=== PATIENT | male | born 1980 | race African-American/Black ===

== ENCOUNTER 2018-05-23 10:03 | Emergency (ER) | payer SELFPAY ==
[~2018-05-23] VITALS: Ht 182.9 cm; Wt 70.0 kg
[~2018-05-23 10:03] MED LIST: ACET650S10 PO; CLX20 PO
[2018-05-23 10:30] VITALS: TEMP 36.7; Ht 182.9 cm; Wt 70.0 kg
[2018-05-23] MEDS ORDERED: LORAZEPAM 1 MG TAB SL STA ×2 (10:42→11:33)
[2018-05-23] MEDS ORDERED: hydrOXYzine HCL 25 MG TAB PO STA (11:33)
[2018-05-23 12:46] LABS: HEMATOCRIT 41.4 % (42-52); HEMOGLOBIN 13.5 g/dL (14.0-18.0); MEAN CELL VOLUME 80.1 fL (80-100); MEAN CORPUSCULAR HEMOGLOBIN 26.1 pg (25-34); MEAN CORPUSCULAR HGB CONC 32.6 g/dl (32-36); MEAN PLATELET VOLUME 9.9 fL (7.4-10.4); PLATELET COUNT 194 K/uL (130-400); RED CELL DISTRIBUTION WIDTH CV 15.7 % (11.5-14.5); RED CELL DISTRIBUTION WIDTH SD 45.8 fL (36.4-46.3); WHITE BLOOD COUNT 4.86 K/uL (4.8-10.8)
[2018-05-23 13:14] LABS: ALBUMIN 3.4 gm/dl (3.4-5.0); CREATININE 1.07 mg/dl (0.60-1.40); POTASSIUM 3.4 mmol/L (3.5-5.1); TOTAL PROTEIN 6.8 gm/dl (6.4-8.2)
--- NOTE | 2018-05-23 14:11 | EMERGENCY ROOM VISIT NOTE ---
History Report prepared by Micha: Norma Martínez Under the Supervision of: Dr. Ryan Osborne M.D. First contact with patient: 10:35 Chief Complaint: MENTAL HEALTH EVALUATION Stated Complaint: ANXIETY,DEPRESSION,SUBSTANCE ABUSE PRIOR SUICIDAL History of Present Illness The patient is a 37 year old male who presents to the Emergency Room for a mental health evaluation. He states he "cannot take his anxiety anymore" so he came to the ED for help. He states after he got out of custodial in October 2016, he and his fiancee broke up and he rarely gets to see his son anymore. 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 These factors have caused him to become increasingly paranoid and he states he has been doing drugs to cope however, he feels it has worsened his anxiety. 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 He denies any SI or SOB. The patient has a history of ulcerative colitis and high blood pressure but does not take any medications. Source of History: patient Onset: after getting out of custodial in October 2016 Position: head, other (upper and lower extremities) Quality: other (anxiety) Modifying Factors (Worsening): other (drugs, fiancee breaking up with him, not being able to see his son, losing his job) Associated Symptoms: No SOB Note: Negative SI Review of Systems See HPI for pertinent positives & negatives. A total of 10 systems reviewed and were otherwise negative. Past Medical & Surgical Medical Problems: (1) Anxiety (2) Elevated CK (3) Elevated troponin (4) Iritis (5) Ulcerative colitis Surgical Problems: (1) No pertinent past surgical history Family History Diabetes mellitus FH: CAD (coronary artery disease) FH: cancer Hypertension Kidney disease Social History Smoking Status: Current Every Day Smoker Alcohol Use: occasionally Drug Use: none Marital Status: single Current/Historical Medications No Active Prescriptions or Reported Meds Allergies Coded Allergies: Omeprazole (Verified Allergy, Unknown, 02/26/16) Penicillins (Verified Allergy, Unknown, 02/26/16) Pineapple (Verified Allergy, Unknown, 02/26/16) Cantaloupe (Verified Adverse Reaction, Unknown, GI SYMPTOMS, 02/26/16) Coconut (Verified Adverse Reaction, Unknown, GI SYMPTOMS, 02/26/16) Honeydew Gem (Verified Adverse Reaction, Unknown, GI SYMPTOMS, 02/26/16) Physical Exam Vital Signs Date Time Temp Pulse Resp B/P (MAP) Pulse Ox O2 Delivery O2 Flow Rate FiO2 05/23/18 13:50 100 22 108/67 97 Room Air 05/23/18 11:50 105 22 110/76 97 Room Air 05/23/18 10:30 36.7 90 22 103/62 97 Room Air Physical Exam GENERAL: Patient is tearful and anxious. HEENT: No acute trauma, normocephalic atraumatic, mucous membranes moist, no nasal congestion, no scleral icterus. NECK: No stridor, no adenopathy, no meningismus, trachea is midline. LUNGS: Clear to auscultation bilaterally, no wheeze, no rhonchi, breath sounds equal. HEART: Without murmurs gallops or rubs, regular rate and rhythm. ABDOMEN: Soft, nontender, bowel sounds positive, no hernias, no peritonitis. EXTREMITIES: No cyanosis or edema, full range of motion of all the joints without pain or difficulty, no signs for acute trauma. PSYCH: Cooperative, tearful and anxious. Denies being suicidal. NEUROLOGIC: Oriented x 3, no acute motor or sensory deficits, no focal weakness. SKIN: No rash, no jaundice, no diaphoresis. Medical Decision & Procedures Laboratory Results 05/23/18 12:32 05/23/18 12:32 Test 05/23/18 10:49 05/23/18 12:32 Urine Color DK YELLOW Urine Appearance CLEAR (CLEAR) Urine pH 5.0 (4.5-7.5) Urine Specific [place] 1.029 (1.000-1.030) Urine Protein TRACE (NEG) Urine Glucose (UA) NEG (NEG) Urine Ketones TRACE (NEG) Urine Occult Blood NEG (NEG) Urine Nitrite NEG (NEG) Urine Bilirubin NEG (NEG) Urine Urobilinogen POS (NEG) Urine Leukocyte Esterase NEG (NEG) Urine WBC (Auto) 5-10 /hpf (0-5) Urine RBC (Auto) 0-4 /hpf (0-4) Urine Hyaline Casts (Auto) 1-5 /lpf (0-5) Urine Epithelial Cells (Auto) 10-20 /lpf (0-5) Urine Bacteria (Auto) NEG (NEG) Urine Opiates Screen NEG (NEG) Urine Methadone, Qualitative NEG (NEG) Urine Barbiturates NEG (NEG) Urine Phencyclidine (PCP) Level NEG (NEG) Ur Amphetamine/Methamphetamine POS (NEG) MDMA (Ecstasy) Screen POS (NEG) Urine Benzodiazepines Screen NEG (NEG) Urine Cocaine Metabolite NEG (NEG) Urine Marijuana (THC) POS (NEG) Red Blood Count 5.17 M/uL (4.7-6.1) Mean Corpuscular Volume 80.1 fL (80-100) Mean Corpuscular Hemoglobin 26.1 pg (25-34) Mean Corpuscular Hemoglobin Concent 32.6 g/dl (32-36) RDW Standard Deviation 45.8 fL (36.4-46.3) RDW Coefficient of Variation 15.7 % (11.5-14.5) Mean Platelet Volume 9.9 fL (7.4-10.4) Anion Gap 8.0 mmol/L (3-11) Est Creatinine Clear Calc Drug Dose 95.4 ml/min Estimated GFR () 103.7 Estimated GFR (Non- 89.5 BUN/Creatinine Ratio 8.7 (10-20) Calcium Level 8.0 mg/dl (8.5-10.1) Total Bilirubin 0.5 mg/dl (0.2-1) Aspartate Amino Transf (AST/SGOT) 14 U/L (15-37) Alanine Aminotransferase (ALT/SGPT) 18 U/L (12-78) Alkaline Phosphatase 64 U/L (45-117) Total Protein 6.8 gm/dl (6.4-8.2) Albumin 3.4 gm/dl (3.4-5.0) Globulin 3.4 gm/dl (2.5-4.0) Albumin/Globulin Ratio 1.0 (0.9-2) Thyroid Stimulating Hormone (TSH) 0.535 uIu/ml (0.300-4.500) Salicylates Level 3.4 mg/dl (2.8-20) Acetaminophen Level < 2 ug/ml (10-30) Ethyl Alcohol mg/dL < 3.0 mg/dl (0-3) Laboratory results reviewed by me. Medications Administered Medications (Trade) Dose Ordered Sig/Alba Route Start Time Stop Time Status Last Admin Dose Admin Lorazepam (Ativan Tab) 1 mg NOW STAT SL 05/23/18 10:42 05/23/18 10:44 DC 05/23/18 10:42 1 MG Lorazepam (Ativan Tab) 2 mg NOW STAT SL 05/23/18 11:33 05/23/18 11:34 DC 05/23/18 11:33 2 MG Hydroxyzine HCl (Vistaril Tab) 50 mg NOW STAT PO 05/23/18 11:33 05/23/18 11:34 DC 05/23/18 11:33 25 MG ED Course 1037: The patient was evaluated in room A5. A complete history and physical exam was performed. 1042: Ordered Ativan Tab 1 mg SL 1130: I checked on the patient at this time. He is still feeling anxious and does not want to do labs. 1133: Ordered Vistaril Tab 50 mg PO, Ativan tab 2 mg SL 1726: The patient was signed out to Dr. Villanueva at this time. Medical Decision Differential diagnosis: Etiologies such as drug and alcohol abuse, withdrawal, thyroid disorder, electrolyte imbalance, situational anxiety, SI, as well as others were entertained. There is no leukocytosis or concerning anemia. No significant electrolyte abnormality, kidney failure or hepatitis. Patient appears to be in a euthyroid state. Urinalysis shows some contamination. Urine tox shows marijuana, ecstasy and methamphetamine. Alcohol level was undetectable. The patient was quite anxious and tearful. He was refusing lab work. He was given sublingual Ativan with no effect. He then received another dose of sublingual Ativan with a dose of oral Vistaril. This helped control his anxiety and he is now sleeping. The patient is sleeping and cannot be assessed from a psychiatric standpoint until he is more awake. His care will be signed out to Dr. Villanueva, please see his notes for the final disposition and plan. I do think the patient is medically clear for a psychiatric evaluation. He did present voluntarily, he denied being suicidal. Medication Reconcilliation Current Medication List: was personally reviewed by me Blood Pressure Screening Patient's blood pressure: Normal blood pressure Blood pressure disposition: Did not require urgent referral Impression Primary Impression: Anxiety Additional Impression: Drug abuse Scribe Attestation The scribe's documentation has been prepared under my direction and personally reviewed by me in its entirety. I confirm that the note above accurately reflects all work, treatment, procedures, and medical decision making performed by me. Departure Information Dispostion Still a Patient Prescriptions No Active Prescriptions or Reported Meds Referrals No Doctor, Assigned (PCP) Patient Instructions [facility] Problem Qualifiers
[2018-05-23 22:35] VITALS: BP 102/65; PULSE 86; O2SAT 99
--- NOTE | 2018-05-24 01:40 | EMERGENCY ROOM VISIT NOTE ---
ED Visit Note First contact with patient: 22:31 Pt was signed out to me by Dr. Osborne at the change in shift. Med cleared but awaiting him to wake up from sedation. Dr. Osborne believes that currently there is no reason to hold him on a 302 at change of shift. Pt denied any SI/HI. Care mangers d/w mom who believes his behavior is 2/2 drugs. Pt was evaled by Dwight. No criteria for 302. Pt notes looking forward to seeing his son. Denies SI/HI. Does not want to stay. Is eating and drinking. No reason to hold. D/c to follow up with PCP as out Pt. Discussed with Pt concerning signs and symptoms to watch out for. Pt was instructed to follow up with their PCP and discussed with the patient their option to return to the ED at anytime for persistent or worsening symptoms. The appropriate anticipatory guidance and out-patient management, including indications for return to the emergency department, were explained at length to the patient and understood.
== END 2018-05-23 22:43 | disposition still patient (30) ==
LOC: C.EDB 10:05 → C.EDA 22:43
DX: F41.9 Anxiety disorder, unspecified (principal); F15.10 Other stimulant abuse, uncomplicated; F12.10 Cannabis abuse, uncomplicated; F17.200 Nicotine dependence, unspecified, uncomplicated; Z88.8 Allergy status to other drugs, medicaments and biological substances; Z88.0 Allergy status to penicillin; Z91.018 Allergy to other foods